=== PATIENT | female | born 1990 | race African-American/Black ===

== ENCOUNTER → 2018-11-02 | Outpatient (CLI) | payer BC ==
--- NOTE | 2018-11-02 17:29 | RAD ---
Pelvic and transvaginal ultrasound History: Amenorrhea Comparison: None. Findings: Multiple transabdominal sonographic images of the pelvis are submitted. Pelvic structures are not well-visualized. There could be mild debris in the urinary bladder. Transvaginal ultrasound: Multiple transvaginal sonographic images of the pelvis are submitted. Uterus measured 6.5 x 2.6 x 3.5 cm. There is mild free fluid in the cul-de-sac. Right ovary measured 3.7 x 3.3 x 4.6 cm. Left ovary measured 4 x 2.2 x 4 cm. There are multiple follicles of the ovaries bilaterally, several situated at the periphery of the ovaries. There is normal low resistance vascularity of the ovaries bilaterally. Endometrium measured about 0.7 cm. There is a heterogeneous and somewhat thickened appearance of the cervix. Impression: 1. There are multiple follicles of the ovaries bilaterally, several which are situated at the periphery of the ovaries, consideration of polycystic ovarian syndrome. There is minimal nonspecific free fluid in the posterior cul-de-sac. 2. Endometrial thickness is within normal limits. There is a somewhat thickened and heterogeneous appearance of the visualized cervix for which clinical evaluation advised. Electronically signed by: Sumeet Marina MD (11/02/2018 5:25 PM) [id number]
== END | disposition home or self-care (01) ==
LOC: US 15:20
PROVIDERS: ATTEND Obstetrics & Gynecology
DX: E28.2 Polycystic ovarian syndrome (principal)
CPT/HCPCS: 76830; 76856

== ENCOUNTER → 2021-07-01 | Outpatient (CLI) | payer BC ==
--- NOTE | 2021-07-01 13:39 | RAD ---
EXAM: ULTRASOUND PELVIS INDICATION: Reason: excessive menstruation / Spl. Instructions: / History: . Last menstrual period was . COMPARISON: 11/02/2018 TECHNIQUE: Transabdominal and transvaginal sonography was performed. FINDINGS: Uterus measures 8.6 x 3.6 x 2.6 cm. Endometrium measures 0.5 cm. No definite myometrial mass is seen. Right ovary measures 3.5 x 1.7 x 1.6 cm on endovaginal imaging. The left ovary measures 4.1 x 2.3 x 2 .2 cm on endovaginal imaging. Follicles are seen bilaterally, some of which appear peripheral. Flow s een to both ovaries. No evidence for ovarian torsion. No free pelvic fluid. IMPRESSION: Follicles are seen bilaterally within the ovaries, some of which appear peripheral. This is nonspecif ic but can be seen with polycystic ovary syndrome. Flow is seen bilaterally suggesting absence of tor mihaela. Electronically signed by: Herman Campa MD (07/01/2021 1:37 PM) [id number]
== END ==
LOC: US 07:20
PROVIDERS: ATTEND Obstetrics & Gynecology
DX: N83.01 Follicular cyst of right ovary (principal); N83.02 Follicular cyst of left ovary; N92.0 Excessive and frequent menstruation with regular cycle
CPT/HCPCS: 76830; 76856